=== PATIENT | male | born 1995 | race Caucasian/White ===

== ENCOUNTER 2021-08-22 09:40 | Emergency (ER) | payer OTHER ==
[2021-08-22 11:14] LABS: Bilirubin Negative (Negative); Blood, Urine Negative (Negative); Clarity Clear (Clear); Glucose, Urine (Dipstick) Negative (Negative); Ketone, Urine Negative (Negative); Leukocyte Negative (Negative); Nitrite Negative (Negative); Protein, Urine (Dipstick) Negative (Neg-Trace); Urobilinogen 0.2 mg/dL (Less than 2)
[2021-08-22] MEDS ORDERED: Doxycycline 100 MG CAP ONE (11:38)
[2021-08-23 12:36] LABS: Chlam.trachomatis by PCR,Urine Not Detected (NotDetected)
== END 2021-08-22 11:39 | disposition home or self-care (01) ==
LOC: BURERS 09:40
DX: L04.9 Acute lymphadenitis, unspecified (principal)
CPT/HCPCS: 81003; 87491; 87591; 99283